=== PATIENT | male | born 1990 | race Two or more races ===

== ENCOUNTER 2020-05-12 15:24 | Emergency (ER) | payer SELFPAY ==
[~2020-05-12] VITALS: Ht 175.3 cm; Wt 61.4 kg
[2020-05-12 15:35] VITALS: BP 115/74
[2020-05-12] MEDS ORDERED: LIDOCAINE 1%/EPI 1:100,000 20 ML VIAL. SQ ONE (15:45)
[2020-05-12] MEDS ORDERED: NEOMY/BACITR/POLYMYXIN OINT PACKET. TP ONE (15:45)
[2020-05-12] MEDS ORDERED: LORazepam 0.5 MG TABLET PO ONE (17:15)
[2020-05-12] MEDS ORDERED: CEPH-264 PO (17:38)
--- NOTE | 2020-05-12 17:38 | PHYS DOC ---
Past Medical History Past Medical History: Anxiety, Depression Past Surgical History: No Surgical History Smoking Status: Current Every Day Smoker Alcohol Use: Occasionally General Adult EDM: Chief Complaint: LACERATION/AVULSION HPI: HPI: Patient is a 29 year old patient who presents to the emergency department with complaints of a laceration to the posterior aspect of his left hand. Patient reports that he was putting his knife away into his truck when he accidentally cut himself. The patient denies any decreased range of motion of the fingers of his left hand. He denies any decreased sensation, numbness, or tingling. He currently rates pain 10 out of 10 on the pain scale. Patient states that he feels very anxious at this time. Review of Systems: Review of Systems: Constitutional: Denies fever or chills. [] Musculoskeletal: Denies joint pain. [] Integument: See HPI Neurologic: Denies focal weakness or sensory changes. [] Psychiatric: Denies depression; see HPI Heart Score: Risk Factors: Risk Factors: DM, Current or recent (<one month) smoker, HTN, HLP, family history of CAD, obesity. Risk Scores: Score 0 - 3: 2.5% MACE over next 6 weeks - Discharge Home Score 4 - 6: 20.3% MACE over next 6 weeks - Admit for Clinical Observation Score 7 - 10: 72.7% MACE over next 6 weeks - Early Invasive Strategies Current Medications: Current Medications Medications (Trade) Dose Ordered Sig/[facility] Start Time Stop Time Status Last Admin Dose Admin Lidocaine/ Epinephrine (LIDOCAINE 1%-EPI 1:100,000 Multi-Dose) 20 ml 1X ONCE 05/12/20 15:45 05/12/20 15:48 DC 05/12/20 15:58 20 ML Lorazepam (Ativan) 0.5 mg 1X ONCE 05/12/20 17:15 05/12/20 17:16 DC 05/12/20 17:27 0.5 MG Neomycin/ Polymyxin/ Bacitracin (Triple Antibiotic Ointment) 1 pkt 1X ONCE 05/12/20 15:45 05/12/20 15:48 DC 05/12/20 15:58 1 PKT Allergies: Allergies: Allergies Coded Allergies Type Severity Reaction Last Updated Verified No Known Drug Allergies 05/12/20 No Physical Exam: PE: Constitutional: Well developed, well nourished, no acute distress, non-toxic appearance, appears anxious. [] HENT: Normocephalic, atraumatic, bilateral external ears normal, nose normal. [] Eyes: PERRLA, EOMI, conjunctiva normal, no discharge. [] Neck: Normal range of motion, no stridor. [] Cardiovascular:Heart rate regular rhythm Lungs & Thorax: Respirations even and unlabored, no retractions, no respiratory distress Skin: Warm, dry, no erythema, no rash; 5 cm deep laceration with 2 visible tendons noted to the posterior aspect of the left hand, no visible foreign body, bleeding controlled by pressure dressing. [] Extremities: Left hand: 5 out of 5 strength, full extension and flexion of the digits of the left hand, PMS intact Neurologic: Alert and oriented X 3, no focal deficits noted. [] Psychologic: Affect normal, judgement normal, mood normal. [] Current Patient Data: Vital Signs: Vital Signs Date Time Temp Pulse Resp B/P (MAP) Pulse Ox O2 Delivery O2 Flow Rate FiO2 05/12/20 15:35 98.2 119 12 115/74 (88) 97 Room Air 98.2 EKG: EKG: [] Radiology/Procedures: Radiology/Procedures: Laceration Repair by me: Anesthesia: 1% lidocaine locally with epinephrine Location: Posterior left hand Tendon/Joint/Nerves: No injury; 2 tendons affecting the second and third digits of the left hand are exposed but intact, no visible tear or laceration of the tendons noted Foreign body: None detected after copious irrigation and exploration with chlorhexidine and normal saline Technique: 9 simple Interrupted Sutures with 4-0 Ethilon Complexity: No subcutaneous sutures/mucosal repair/edge excision Post Closure Length: 5 cm Patient's bleeding was easily controlled in the department and there is no indication of anemia. No evidence of compartment syndrome, neurologic injury, vascular injury, open joint, tendon laceration, or foreign body. Patient is appropriate for outpatient follow up. [] Course & Med Decision Making: Course & Med Decision Making Pertinent Labs and Imaging studies reviewed. (See chart for details) 29-year-old male presents to the emergency department with complaints of a laceration to his left posterior hand. Patient reported his last tetanus shot was 1 year ago. The wound was cleansed and explored by myself. Dr. Alford also evaluated the patient for a tendon injury. Wound repair as documented above. Prescription was written for Keflex 500 mg 4 times daily x7 days. Patient was encouraged take Tylenol or ibuprofen as needed for pain. Follow-up with his primary care doctor or return to the emergency room in 10 to 14 days to have the sutures removed. I advised the patient to cleanse wound twice daily and apply antibiotic ointment. Patient verbalized an understanding of home care, medications, follow-up, and return to ED instructions and was in agreement with the plan of care. [] Dragon Disclaimer: Dragon Disclaimer: This electronic medical record was generated, in whole or in part, using a voice recognition dictation system. Departure Departure Impression: Primary Impression: Laceration of left hand without complication, excluding fingers Qualified Codes: S61.412A - Laceration without foreign body of left hand, initial encounter Disposition: 01 HOME, SELF-CARE Condition: STABLE Referrals: NO PCP (PCP) Patient Instructions: Laceration Care, Adult, [id number] Additional Instructions: Fill the prescription and use it as directed. Keep the area clean and dry. You may take Tylenol or ibuprofen as needed for pain. Keep the dressing that was placed today on for 24 hours then change the dressing twice a day and apply antibiotic ointment to the area. Follow-up with your primary care doctor, or return to the emergency room in 10-14 days to have the sutures removed, sooner if you develop signs of infection including: redness, warmth, drainage, or a fever. Scripts Cephalexin (KEFLEX) 500 Mg Capsule 500 MG PO QID for 7 Days, #28 CAP 0 Refills Prov: VIELKA WALDROP APRN 05/12/20 Justicifation of Admission Dx: Justifications for Admission: Justification of Admission Dx: No VIELKA WALDROP SHOT BAGGER May 12, 2020 17:38
== END 2020-05-12 17:42 | disposition home or self-care (01) ==
LOC: ER 15:24
DX: S61.412A Laceration without foreign body of left hand, initial encounter (principal); F41.9 Anxiety disorder, unspecified; F32.9 Major depressive disorder, single episode, unspecified; F17.200 Nicotine dependence, unspecified, uncomplicated; W26.8XXA Contact with other sharp object(s), not elsewhere classified, initial encounter; Y93.89 Activity, other specified; Y92.89 Other specified places as the place of occurrence of the external cause; Y99.8 Other external cause status
CPT/HCPCS: 12002; 99283; J3490